=== PATIENT | male | born 1945 | race Caucasian/White ===

== ENCOUNTER → 2016-10-06 | Outpatient (CLI) | payer OTHER ==
[~2016-10-06] MED LIST: ASPI81TA28 PO; ATOR10TA88 PO; GLIP-197 PO; MULT-506 PO
== END | disposition home or self-care (01) ==
LOC: C.LAB 15:50
PROVIDERS: ATTEND Urology
DX: R97.20 Elevated prostate specific antigen [PSA] (principal)

== ENCOUNTER → 2017-06-08 | Outpatient (CLI) | payer OTHER ==
[2017-06-08 10:05] LABS: ALB/GLOB RATIO 1.4 (0.9-2); ALKALINE PHOSPHATASE 83 U/L (45-117); ALT/SGPT 23 U/L (12-78); AST/SGOT 19 U/L (15-37); BLOOD UREA NITROGEN 19 mg/dl (7-18); BUN/CREATININE RATIO 21.3 (10-20); CALCIUM 8.7 mg/dl (8.5-10.1); CARBON DIOXIDE 27 mmol/L (21-32); CHLORIDE 108 mmol/L (98-107); CHOLESTEROL 112 mg/dl (0-200); CREATININE 0.91 mg/dl (0.60-1.40); GLUCOSE 110 mg/dl (70-99); POTASSIUM 4.4 mmol/L (3.5-5.1); SODIUM 142 mmol/L (136-145); TRIGLYCERIDES 47 mg/dl (0-150); VERY LOW DENSITY LIPOPROT CALC 9 mg/dl
[2017-06-08 10:13] LABS: HDL CHOLESTEROL 57 mg/dl; LDL CHOLESTEROL CALCULATED 46 mg/dl
== END | disposition home or self-care (01) ==
LOC: C.LAB1850 08:07
PROVIDERS: ATTEND Family Medicine
DX: E11.9 Type 2 diabetes mellitus without complications (principal); E78.5 Hyperlipidemia, unspecified; I10 Essential (primary) hypertension; R97.20 Elevated prostate specific antigen [PSA]

== ENCOUNTER → 2017-08-31 | Outpatient (CLI) | payer OTHER ==
[~2017-08-31] MED LIST changes: +ATOR10TA82 PO; -ATOR10TA88 PO
== END | disposition home or self-care (01) ==
LOC: C.LAB 09:13
PROVIDERS: ATTEND Urology
DX: R97.20 Elevated prostate specific antigen [PSA] (principal)

== ENCOUNTER → 2017-09-09 | Outpatient (CLI) | payer OTHER ==
--- NOTE | 2017-09-09 14:57 | DIAGNOSTIC IMAGING REPORT ---
L HAND MIN 3 VIEWS ROUTINE CLINICAL HISTORY: 72 years-old Male presenting with R22.32 Localized swelling on left [id number]. TECHNIQUE: Frontal, oblique, and lateral views of the left hand were obtained. COMPARISON: None. FINDINGS: No acute fracture or malalignment. Mild degenerative change of the first carpometacarpal articulation. No advanced degenerative change. No radiographic soft tissue abnormality. IMPRESSION: No acute osseous injury of the left hand. Electronically signed by: Sedrick Avila M.D. 09/09/2017 2:55 PM Dictated Date/Time: 09/09/2017 2:55 PM
== END | disposition home or self-care (01) ==
LOC: C.RAD1850 14:46
PROVIDERS: ATTEND Nurse Practitioner Adult Health
DX: R22.32 Localized swelling, mass and lump, left upper limb (principal)

== ENCOUNTER → 2017-10-20 | Outpatient (CLI) | payer OTHER ==
--- NOTE | 2017-10-20 14:11 | DIAGNOSTIC IMAGING REPORT ---
R ANKLE MIN 3 VIEWS ROUTINE HISTORY: 72 years-old Male S99.911A Right ankle [id number] acute right ankle pain COMPARISON: None available TECHNIQUE: 3 views of the right ankle FINDINGS: Mild soft tissue swelling is noted about the ankle, greatest anteriorly adjacent to the distal tibia. Moderate sized enthesophyte about the plantar calcaneus. Mild dorsal spurring about the midfoot. No acute fracture, dislocation or osteochondral defect. IMPRESSION: Mild anterior soft tissue swelling without fracture. The above report was generated using voice recognition software. It may contain grammatical, syntax or spelling errors. Electronically signed by: Koko Daigle M.D. 10/20/2017 2:09 PM Dictated Date/Time: 10/20/2017 2:07 PM
== END | disposition home or self-care (01) ==
LOC: C.RAD1850 13:56
PROVIDERS: ATTEND Nurse Practitioner Adult Health
DX: S99.911A Unspecified injury of right ankle, initial encounter (principal); X58.XXXA Exposure to other specified factors, initial encounter